=== PATIENT | male | born 1990 | race Caucasian/White ===

== ENCOUNTER 2017-02-04 20:49 | Emergency (ER) | payer BC ==
[~2017-02-04] VITALS: Ht 167.6 cm; Wt 129.2 kg
[2017-02-04 20:51] VITALS: TEMP 37.2; Ht 167.6 cm; Wt 129.2 kg
[2017-02-04] MEDS ORDERED: PENI-82 PO (21:21)
--- NOTE | 2017-02-04 21:22 | EMERGENCY ROOM VISIT NOTE ---
ED Visit Note First contact with patient: 21:02 CHIEF COMPLAINT: Left jaw pain HISTORY OF PRESENT ILLNESS: This 26-year-old male patient presented to the emergency department complaining of pain in the left jaw. The patient states he had his wisdom teeth removed 2 weeks ago. Today, the patient has developed pain in the left ear and left side of the jaw. He states that the teeth seemed to be healing well after surgery and he had a follow-up appointment and was told that everything looked normal. He is unsure of the pain is coming from the teeth or ear. He rates his discomfort an 8/10. The pain is worse with chewing or moving the mouth. He has been taking ibuprofen with some relief of the pain. Denies facial swelling or fever. The patient denies any discharge from the mouth. REVIEW OF SYSTEMS: A 6 system review of systems was completed with positives and pertinent negatives listed in the HPI. ALLERGIES: No known drug allergies MEDICATIONS: No chronic medications PMH: No significant past medical history. SOCIAL HISTORY: The patient lives with his . Nonsmoker, denies alcohol use. PHYSICAL EXAM: Vitals are noted on the nurse's note and reviewed by myself. Vital signs stable. Temperature 37.2C orally. GENERAL: This is a 26-year-old male, in no acute distress, nondiaphoretic, well- developed well-nourished. MOUTH: There is evidence of recent left upper and lower wisdom teeth extraction. There is no significant swelling or drainage to suggest abscess. The pharynx and tonsils are without erythema, edema, or exudate. The airway is patent. There is no facial swelling, cervical or submandibular lymphadenopathy. The patient appears uncomfortable and in pain. The patient has overall good dental hygiene. EARS: External auditory canals clear, tympanic membranes pearly garibay without erythema or effusion bilaterally. ED COURSE: The patient was evaluated as above. Exam is unremarkable, however given patient's recent surgery I do think it is reasonable to cover him with antibiotics for the possibility of underlying infection. He will be placed on penicillin and was instructed to follow-up with his dentist for further evaluation. He has leftover pain medication from his surgery which he may take as needed. He was advised to return here for any worsening symptoms. He verbalized understanding of my assessment and treatment plan and was discharged home in good condition. Medication reconciliation: I attest that I have personally reviewed the patient 's current medication list. Blood Pressure Screening: Patient was found to have a slightly elevated blood pressure due to circumstances. I do not believe that the patient requires hypertension monitoring. DIAGNOSIS: Odontalgia Current/Historical Medications Scheduled Penicillin V Potassium (Veetids), 500 MG PO QID Allergies Coded Allergies: No Known Allergies (Unverified , 02/04/17) Vital Signs Date Time Temp Pulse Resp B/P (MAP) Pulse Ox O2 Delivery O2 Flow Rate FiO2 02/04/17 20:51 37.2 94 18 150/107 98 Room Air Departure Information Impression Primary Impression: Dentalgia Dispostion Home / Self-Care Condition GOOD Prescriptions Penicillin V Potassium (Veetids) 500 Mg Tab 500 MG PO QID for 10 Days, #40 TAB Prov: Keshia Montano .DEVIN 02/04/17 Referrals No Doctor, Assigned (PCP) Patient Instructions [facility] Additional Instructions You have been treated in the Emergency Department for Dental Pain. You were prescribed Penicillin to be taken as prescribed. This is an antibiotic. All antibiotics have the potential to cause diarrhea. Stop this medication and contact a medical provider if you were to develop any significant adverse side effects including: wheezing, shortness of breath, passing out, vomiting, or a diffuse rash. Always take antibiotics as directed and COMPLETE the ENTIRE course regardless of the improvement of your symptoms. For pain control, you can use the following [id number] medicines (if >12 yo): - Regular strength (325mg/tab) Tylenol (acetaminophen) 2 tabs every 4-6 hours as needed. Do not exceed 12 tablets in a 24 hour period. Avoid taking more than 4 grams (4000 mg) of Tylenol per day. This includes any other sources of acetaminophen you may take on a regular basis. - Regular strength (200 mg/tab) Advil (ibuprofen) 1-2 tabs every 4-6 hours as needed. Do not exceed a dose of 3200 mg per day. Refrain from smoking cigarettes or using chewing tobacco until you have been evaluated by your dentist. Keeping beverages lukewarm and consuming soft foods can decrease your pain. Warm compresses over the affected area may offer some relief. You MUST seek evaluation of your dental pain by a dentist following your visit to the Emergency Department. The Emergency Department is not capable of treating dental issues long-term. You should call your dentist as soon as possible to make an appointment for evaluation of your dental pain. Return to the emergency department if you develop the following symptoms despite treatment course outlined above: fever, intractable pain, increased redness, swelling, or purulent discharge.
[2017-02-04] MEDS ORDERED: PENICILLIN HOME PACK 500MG (4 DOSES)BTL PO ONE (21:30)
[2017-02-04 21:54] VITALS: BP 155/118; PULSE 92; O2SAT 95
== END 2017-02-04 21:55 | disposition home or self-care (01) ==
LOC: C.EDB 20:51 → C.EDD 21:55
DX: K08.89 Other specified disorders of teeth and supporting structures (principal); Z98.818 Other dental procedure status